=== PATIENT | male | born 1940 | race Caucasian/White ===

== ENCOUNTER 2016-10-28 15:10 | Inpatient (IN) | payer MEDICARE, OTHER ==
[~2016-10-28] VITALS: Ht 175.3 cm; Wt 111.4 kg
--- NOTE | ~2016-10-28 | DS ---
PATIENT'S NAME: JEANNINE CISNEROS [facility] AGE: 75 Y [address] ROOM: [place] [address] LOCATION: GPCU ADMIT DATE: 10/28/2016 Discharge Summary DISCHARGE DATE: 10/31/2016 FAMILY PHYSICIAN: Dionne Torres MD ATTENDING PHYSICIAN: Oh Franklin V PRIMARY DIAGNOSES: 1. Acute on chronic hypoxic hypercapnic respiratory failure. 2. Chronic obstructive pulmonary disease with exacerbation. 3. Community-acquired pneumonia, unknown organism. 4. Acute on chronic diastolic congestive heart failure. 5. Chronic atrial fibrillation, not on long-term anticoagulation due to history of GI bleeds. 6. Chronic kidney disease, stage III. 7. Morbid obesity. OPERATIONS/PROCEDURES: Echocardiogram was obtained 10/29/2016, demonstrating an ejection fraction 55-60%, mild aortic regurgitation. No other acute findings. HISTORY OF PRESENT ILLNESS/REASON FOR ADMISSION: Please with the H and P dictated 10/28/2016. HOSPITAL COURSE: The patient was admitted to hospital as noted above with a presumptive diagnosis of acute on chronic hypoxic hypercapnic respiratory failure. Pneumonia was diagnosed on the basis of radiographic findings. Cultures remained negative. He was treated with broad-spectrum antibiotic therapy including Rocephin and Zithromax. His clinical condition gradually improved. Oxygen requirements were relatively stable. He did not have any significant increase in oxygen demand. He did receive aggressive attention to pulmonary hygiene and some physical therapy and occupational therapy. By the end of the 4th day of his hospital stay, it was felt that he would be stable enough for discharge to home with plans for close clinical followup with as well as continued home oxygen therapy. His expressed some concerns that their equipment was not functioning properly and also expressed some dissatisfaction with their current oxygen supplier. She did indicate that they were apparently contractually agreed with that company, however. DISCHARGE INSTRUCTIONS: DIET: Cardiac prudent as tolerated. PATIENT'S NAME: JEANNINE CISNEROS [facility] AGE: 75 Y [address] ROOM: [place] [address] LOCATION: GPCU ADMIT DATE: 10/28/2016 Discharge Summary DISCHARGE DATE: 10/31/2016 FAMILY PHYSICIAN: Dionne Torres MD ATTENDING PHYSICIAN: Oh Franklin V ACTIVITY: As tolerated. MEDICATIONS: 1. Oxygen 2 L per nasal cannula continuously. 2. Zithromax 500 mg p.o. daily x5 more days. 3. Minocycline 100 mg p.o. at bedtime. 4. Amitriptyline 25 mg p.o. at bedtime. 5. Klonopin 2 mg p.o. at bedtime. 6. Delsym syrup 30 mg p.o. at bedtime p.r.n. 7. Probiotic powder one dose p.o. b.i.d. 8. Lasix 60 mg p.o. daily. 9. Guaifenesin 600 mg p.o. b.i.d. 10. Losartan 50 mg p.o. daily. 11. Prednisone 30 mg p.o. daily x5 more days, then 20 mg p.o. daily. 12. Mirtazapine 30 mg p.o. at bedtime. 13. Singulair 10 mg p.o. at bedtime. 14. Protonix 40 mg p.o. b.i.d. 15. Simvastatin 20 mg p.o. at bedtime. 16. Flomax 0.4 mg p.o. q.a.m. 17. DuoNeb q.i.d. and every 4 hours as needed for wheezing and shortness of breath. 18. Symbicort 160/4.5 two puffs p.o. b.i.d. 19. Albuterol HFA 2 puffs p.o. q.4 hours p.r.n. 20. Iron 325 mg p.o. b.i.d. FOLLOWUP: He will follow up with Dr. Calhoun, Pulmonology in 1-2 weeks. He will establish care with Dr. Layla Wilkerson in [place] in 5-7 days. CONDITION ON DISCHARGE: Fair. TOTAL TIME SPENT ON DISCHARGE PROCESS: 60 minutes. MD ROLLY ROCHA/marylin /[id number] d: 11/01/16 0215 t: 03/23/17 1532, DISCHARGE SUMMARY
--- NOTE | ~2016-10-28 | ER ---
PATIENT'S NAME: JEANNINE CISNEROS [facility] AGE: 75 Y [address] ROOM: [place] [address] LOCATION: GPCU ADMIT DATE: 10/28/2016 ER/Outpatient Report DISCHARGE DATE: FAMILY PHYSICIAN: Dionne Torres MD ATTENDING PHYSICIAN: BAM MICHELLE V Time of Arrival: 1510 hours. Time seen: 1520 hours. IDENTIFICATION: This is a 75-year-old male. CHIEF COMPLAINT: Weakness. HISTORY OF PRESENT ILLNESS: The patient has weakness and decreased appetite. He was seen yesterday in the [facility] ER and diagnosed with bronchitis. His doxycycline was increased from once a day to twice a day. Today, he just feels like a wet rag. He has a nonproductive cough, shortness of breath. No fever or chills. Decreased appetite. Just does not feel well. So, they drove from [place] because Dr. Calhoun is his mechanical striper. PAST MEDICAL HISTORY: ALLERGIES: PENICILLIN, AVELOX, AMBIEN, AND LEVAQUIN. THE AVELOX AND LEVAQUIN CAUSED HIM TO HAVE BAD C. DIFF ACCORDING TO THE . CURRENT MEDICATIONS: 1. Symbicort 160/4.5. 2. Pantoprazole 40 mg b.i.d. 3. Montelukast 10 mg at bedtime. 4. Amitriptyline 25 mg at bedtime. 5. Ferrous sulfate 325 mg 1/2 tab t.i.d. 6. Clonazepam 2 mg. 7. Doxycycline 100 mg b.i.d. 8. Flomax 0.4 mg daily. 9. Prednisone 20 mg daily. 10. Losartan 50 mg daily. 11. Simvastatin 20 mg at bedtime. 12. Mucinex 600 mg per ER. 13. Lasix 40 mg 1-1/2 daily. 14. Remeron 30 mg at bedtime. 15. Probiotic 1/4th teaspoon b.i.d. PATIENT'S NAME: JEANNINE CISNEROS [facility] AGE: 75 Y [address] ROOM: [place] [address] LOCATION: GPCU ADMIT DATE: 10/28/2016 ER/Outpatient Report DISCHARGE DATE: FAMILY PHYSICIAN: Dionne Torres MD ATTENDING PHYSICIAN: BAM MICHELLE V MEDICAL PROBLEMS: COPD, history of C. diff, and hypertension. PRIOR SURGERIES: Cholecystectomy and cataract surgery. FAMILY HISTORY: No pertinent family history identified. SOCIAL HISTORY: The patient lives in [place], [place]. 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 He did a lot of traveling. He is . Tobacco use denies. Alcohol use denies. Drug use denies. REVIEW OF SYSTEMS: All systems reviewed negative other than what is noted in the HPI. PHYSICAL EXAMINATION: VITAL SIGNS: Pulse 83, respirations 20, temperature 98.4, and sats 95% on 2 L. HEENT: Head: Normocephalic, atraumatic. Ears: TMs translucent, both ears. Nose: Mucosa pink, no lesions. Mouth: No lesions. Pharynx benign. NECK: Supple. No lymphadenopathy. LUNGS: Clear to auscultation with crackles at the right base. HEART: Regular rate and rhythm. ABDOMEN: Soft, nondistended, nontender. SKIN: [place], warm, and dry. No lesions or rashes noted. NEUROLOGIC: Exam no focal deficit. PSYCH: The patient has a depressed mood. Good eye contact. No suicidal ideation. LABORATORY DATA: Labs were obtained to include blood cultures, urine culture. Lactated is 2.2. EKG, sinus rhythm with occasional PVCs, 81 beats per minute. No acute ST elevation or depression. Hemoglobin 12.9, hematocrit 40.5, platelets 167, white count elevated at 14.2 with 90% neutrophils and this is up from 7 yesterday. INR 1.0. ProBNP 111. Sodium 142, potassium 4.2, chloride 106, CO2 28, BUN 30, creatinine 1.2, and blood sugar 180. Hemoglobin A1c had been added after this. Magnesium 1.9. CPK 60, CK-MB 0.6, troponin I less than 0.010. Procalcitonin elevated at 0.58. Hemoglobin A1c 4.7. One-view chest x- ray, infiltrate in the right middle lobe. Pending Radiology over-read. IMPRESSION AND PLAN: 1. Right middle lobe pneumonia. PATIENT'S NAME: JEANNINE CISNEROS [facility] AGE: 75 Y [address] ROOM: [place] [address] LOCATION: GPCU ADMIT DATE: 10/28/2016 ER/Outpatient Report DISCHARGE DATE: FAMILY PHYSICIAN: Dionne Torres MD ATTENDING PHYSICIAN: BAM MICHELLE V 2. Chronic obstructive pulmonary disease exacerbation. PLAN: 125 mg of Solu-Medrol. The patient will be started on the pneumonia pathway. Dr. Michelle here for admission and will make a choice on antibiotics due to his intolerance and history of clostridium difficile colitis. For the chronic obstructive pulmonary disease, he was given 125 mg of Solu-Medrol and Dr. Calhoun will be consulted. Dr. Calhoun was notified of his admission, recommended DuoNeb every 4 hours and albuterol every 2 hours p.r.n., IV steroids and he will provide consultation. RENAE ANTOINE MD CAR/modl /[id number] d: 10/29/16 1203 t: 10/31/16 0923, OUTPATIENT REPORT
--- NOTE | ~2016-10-28 | HP ---
PATIENT'S NAME: JEANNINE CISNEROS [facility] AGE: 75 Y [address] ROOM: [place] [address] LOCATION: GPCU ADMIT DATE: 10/28/2016 History & Physical DISCHARGE DATE: FAMILY PHYSICIAN: Dionne Torres MD ATTENDING PHYSICIAN: BAM MICHELLE V DATE OF SERVICE: CHIEF COMPLAINT: Weakness. HISTORY OF PRESENT ILLNESS: The patient is a 75-year-old male with past medical history most significant for chronic hypoxic respiratory failure with oxygen dependency due to nontobacco cause COPD. The patient presented to a different hospital yesterday with complaints of increased fatigue and lack of energy as well as anorexia. He had an increase in the dose of his doxycycline, which he takes chronically from 100 mg daily to b.i.d. The patient is also on 20 mg of prednisone at all times, but that was not changed. Today, the patient came to the ER at [facility] with the same complaints. The measures taken at the outside facility did not improve him. Unfortunately, he and his are very poor historians, and he only really volunteers increased fatigue, weakness, decreased oral intake, and lack of energy. His also does endorse a drop in his oxygen to approximately 87% on chronic 2 L of nasal cannula that he has at home. Workup in the emergency room revealed a mild leukocytosis as well as a likely right middle/lower lobe pneumonia. When questioned about paroxysmal nocturnal dyspnea or orthopnea, the patient denies any worsening of those symptoms. He may or may not have history of heart failure, but we do not have those records. REVIEW OF SYSTEMS: All systems have been reviewed and negative aside from pertinent positives as mentioned above. PAST MEDICAL HISTORY: Significant for; 1. Chronic hypoxic respiratory failure due to COPD. 2. Questionable diabetes. 3. Irregular heart rate as reported by his , though I do not appreciate any records of atrial fibrillation here. 4. History of significant Clostridium difficile infection, which "almost PATIENT'S NAME: JEANNINE CISNEROS [facility] AGE: 75 Y [address] ROOM: [place] [address] LOCATION: GPCU ADMIT DATE: 10/28/2016 History & Physical DISCHARGE DATE: FAMILY PHYSICIAN: Dionne Torres MD ATTENDING PHYSICIAN: BAM MICHELLE V killed him" as per his . 5. Hypertension. CURRENT MEDICATIONS: 1. Symbicort. 2. Pantoprazole. 3. Montelukast. 4. Amitriptyline. 5. Ferrous sulfate. 6. Clonazepam. 7. Doxycycline. 8. Flomax. 9. Prednisone. 10. Colace. 11. Simvastatin. 12. Mucinex. 13. Lasix. 14. Remeron. SOCIAL HISTORY: Negative for any history of tobacco use, but is significant for exposure to chemical dust, which supposedly was the underlying cause for his COPD. FAMILY HISTORY: Reviewed and is noncontributory due to known underlying etiology for his presentation. PHYSICAL EXAMINATION: VITAL SIGNS: Blood pressure 143/93, temperature 98.4, pulse 83, saturating 95% on 2 L nasal cannula, and respirations are 20. GENERAL APPEARANCE: A chronically ill, elderly male, in no acute distress. NEUROLOGIC: Nonfocal. EYES: Show pupils are equal and reactive to light. LYMPHATIC: Shows no cervical lymphadenopathy. ENDOCRINE: Shows no thyromegaly. LUNGS: Significant for crackles in the right base and right middle lobe. HEART: Reveals irregular rate and rhythm without appreciable murmurs, gallops, or rubs. There is no lower extremity edema and JVD cannot be assessed. GI: Abdomen is soft, nontender, and nondistended. : Reveals no costovertebral angle tenderness. VASCULAR: 2+ pedal pulses. MUSCULOSKELETAL: Reveals no muscle or joint abnormalities. SKIN: Warm and dry. PSYCHIATRIC: Reveals depressed mood, but no suicidal ideations. Appropriate PATIENT'S NAME: JEANNINE CISNEROS [facility] AGE: 75 Y [address] ROOM: [address] [place] [id number] [facility] ADMIT DATE: 10/28/2016 History & Physical DISCHARGE DATE: FAMILY PHYSICIAN: Dionne Torres MD ATTENDING PHYSICIAN: BAM MICHELLE V mood, cognition, and affect. LABORATORY DATA: Studies performed in the ER are significant for an EKG, which shows normal sinus rhythm at 80 beats per minute with frequent PVCs. No ST-segment or T- wave abnormalities. Chest x-ray, which shows a right middle/lower lobe infiltrate. Lab results are significant for a lactate of 2.2, unremarkable basic metabolic profile, otherwise 2 sets of negative cardiac enzymes. White count is 14.2 with a procalcitonin of 0.58. Urinalysis is still pending. ASSESSMENT AND PLAN: This is a 75-year-old male, who will be admitted with; 1. Acute on chronic hypoxic respiratory failure, likely due to pneumonia. This was a transient finding at home. We will continue monitoring his O2 saturation. 2. Suspected pneumonia. Organism yet unknown. We will check his urine for Legionella and pneumococcal antigens. We will treat him empirically with aztreonam due to quinolone intolerance and reported allergy to penicillin. We will follow up his cultures. 3. Questionable history of congestive heart failure. I do not see an echocardiogram having ever been done, and we will either request that from his PMD or perform one here. 4. Chronic obstructive pulmonary disease. We will put the patient on a more aggressive steroid regimen that he is on right now. 5. Additional management depend on clinical course. Time dedicated to the patient's encounter is 35 minutes. MD BINU AVERY/marylin /[id number] D: T: 802 HISTORY & PHYSICAL
--- NOTE | ~2016-10-28 | ECHO ---
Transthoracic Echocardiography Report (TTE) Demographics Patient Name JEANNINE CISNEROS Date of Study 10/29/2016 Patient Number [id number] Visit Number [id number] Date of 1940 Room Number G6305 Accession Number [id number] Gender Male Age 75 year(s) Referring Melissa Baker MD Dental Detail Representative Wilman Romero [facility], Physician RVT Physician Interpreting Sridhar Lea Maintenance Shop Technician Physician MD Supervising Ordering Physician Noemi Thakkar MD/[facility]IU Nurse Stress Scrub Nurse Conclusions Contractility Score Summary Normal Left Ventricular contractility was noted. Summary The estimated left ventricular ejection fraction is 55-60% with normal wall thickness,EF and WM. The aortic valve is mildly sclerotic. There is mild aortic regurgitation by color Doppler. Trivial TR. Procedure Type of Study TTE procedure:2D Echocardiogram. Procedure Date Date: 10/29/2016 Start: 09:12 AM Study Location: Inpatient Portable Technical Quality: Adequate visualization Indications:Shortness of breath and CHF. Appropriate Use Criteria: 9 Patient Status: Routine BP: 122/58 mmHg M-Mode/2D Measurements LV Diastolic Dimension: 5.59 cm LV Systolic Dimension: 3.47 cm LV Septum Diastolic: 1.09 cm LV PW Diastolic: 1.08 cm LA Dimension: 3.7 cm RV Diastolic Dimension: 2.96 cm LA volume: 52 ml LVOT: 2 cm RV Base: 3.4 cm LVOT VTI: 25.5 cm RV Mid: 2.35 cm LV Stroke volume: 80.07 ml TAPSE: 2.51 cm TDI-S': 12.4 cm/s Doppler Measurements AV Peak Velocity: 1.24 m/s MV Peak E-Wave: 0.68 m/s AV Peak Gradient: 6.15 mmHg MV Peak A-Wave: 0.9 m/s AV Mean Gradient: 5 mmHg MV E/A Ratio: 0.76 LVOT Peak Velocity: 1.19 m/s AV P1/2t: 439 msec MV Deceleration Time: 331 msec TR Velocity:1.8 m/s PV Peak Velocity: 1.01 m/s TR Gradient:12.96 mmHg PV Peak Gradient: 4.08 mmHg Estimated RAP:8 mmHg Estimated PASP: 20.96 mmHg Estimated RVSP: 21 mmHg A' Septal Velocity: 0.11 m/s E' Septal Velocity: 0.06 m/s A' Lateral Velocity: 0.13 m/s E' Lateral Velocity: 0.07 m/s Findings Left Ventricle Normal left ventricle size and function. Right Ventricle Normal right ventricle structure and function. Left Atrium Normal left atrial size. Right Atrium The right atrium is mildly dilated. IVC not visualised. Mitral Valve Normal mitral valve structure and function. Aortic Valve The aortic valve is mildly sclerotic. There is mild aortic regurgitation by color Doppler. Tricuspid Valve Trivial tricuspid regurgitation by color Doppler. Pulmonic Valve Trivial pulmonic valve regurgitation by color Doppler. Pericardial Effusion No evidence of pericardial effusion. Miscellaneous Visualized portions of the aortic root and ascending aorta appear normal in size. Pleural Effusion No evidence of pleural effusion. Contractility Score LV regional wall motion:(0-Non visualized 1-Normal 2-Hypokinesis 3-Akinesis 4-Dyskinesis 5-Aneurysm) Signature dtt: Leonora Waller dtd: 10/29/16 0912 Physician Self Edit
[~2016-10-28 15:10] MED LIST: COZAAR50 MG PO; DELTASONE10 MG PO; DURICEF (NON-500 MG PO; ELAVIL25 MG PO; FEOSOL325 MG PO; FLOMAX0.4 MG PO; HYDRALAZINE HCL25 MG PO; HYDRODIURIL25 MG PO; IPRAT-ALBUT 0.5-3 ML INH; K-TAB ER10 MEQ PO; KLONOPIN2 MG PO; LASIX40 MG PO; LEVAQUIN500 MG PO; MIRTAZAPINE30 MG PO; MUCINEX600 MG PO; PANTOPRAZOLE SO40 MG PO; PROBIOTIC POWDER PO; PROVENTIL OR V6.7 GM INH; SINGULAIR10 MG PO; SYMBICORT 16010.2 GM INH; ZOCOR20 MG PO
[2016-10-28 15:58] LABS: BASOPHIL % 0.1 %; HEMATOCRIT 40.5 % (37.0-53.0); HEMOGLOBIN 12.9 g/dL (11.0-16.0); IMMATURE GRANULOCYTE # 0.1 K/uL (0.0-0.3); IMMATURE GRANULOCYTE % 0.4 %; LYMPHOCYTE # 0.8 K/uL (0.8-4.0); LYMPHOCYTE % 5.6 %; MCH 31.1 pg (27.0-34.0); MCHC 31.9 gm/dL (32.0-36.5); MCV 97.6 fl (83.0-98.0); MONOCYTE # 0.5 K/uL (0.0-1.0); MONOCYTE % 3.7 %; MPV 9.3 fl (9.4-12.4); NEUTROPHIL # (ANC) 12.8 K/uL (1.4-9.0); NEUTROPHIL % 90.2 %; NRBC % 0 /100WBC (0-0.00); PLATELET COUNT 167 K/uL (150-450); RBC 4.15 M/uL (3.50-5.50); WBC 14.2 K/uL (4.0-11.0)
[2016-10-28 16:10] LABS: PTT 24 SECONDS (25-32)
[2016-10-28 16:19] LABS: ALBUMIN 3.2 gm/dL (3.5-5.0); ALK PHOS 69 IU/L (33-138); ALT 23 IU/L (12-78); ANION GAP 12.2 (10.0-19.0); AST 18 IU/L (10-40); BLOOD UREA NITROGEN 30 mg/dL (6-24); CALCIUM 7.8 mg/dL (8.5-10.5); CHLORIDE 106 mMol/L (96-110); CO2 28 mMol/L (22-32); CPK 60 IU/L (35-332); CREATININE 1.2 mg/dL (0.6-1.3); ESTIMATED GFR (MDRD EQUATION) 59; MAGNESIUM 1.9 mg/dL (1.3-2.6); POTASSIUM 4.2 mMol/L (3.7-5.1); SODIUM 142 mMol/L (135-145); TOTAL BILIRUBIN 0.7 mg/dL (0.0-1.5); TOTAL PROTEIN 6.2 g/dL (6.0-8.4)
[2016-10-28] MEDS ORDERED: DOXYCYCLINE100 MG PO (19:11)
[2016-10-28] MEDS ORDERED: DELSYM30 MG/5 ML PO (19:14)
--- NOTE | 2016-10-29 02:50 | NUR ---
Patient is a 75 year old male who went to the [place] ER on 10/27 for increased shortness in breath and weakness. Dx with upper respiratory infection and given PO ATB. Patient still not feeling well on 10/28 so brought to [facility] to be seen and stating that he needed to be admitted. Admitted to PCU for pneumonia, started on IV ATB and pnuemonia pathway. VSS on admission. PIV to L)hand.
[2016-10-29 04:15] LABS: BASOPHIL % 0.1 %; HEMATOCRIT 36.3 % (37.0-53.0); IMMATURE GRANULOCYTE # 0.1 K/uL (0.0-0.3); IMMATURE GRANULOCYTE % 0.5 %; LYMPHOCYTE # 0.8 K/uL (0.8-4.0); LYMPHOCYTE % 7.4 %; MCH 31.4 pg (27.0-34.0); MCHC 33.1 gm/dL (32.0-36.5); MONOCYTE # 0.1 K/uL (0.0-1.0); MONOCYTE % 0.8 %; MPV 9.5 fl (9.4-12.4); NEUTROPHIL # (ANC) 10.1 K/uL (1.4-9.0); NEUTROPHIL % 91.2 %; NRBC % 0 /100WBC (0-0.00); PLATELET COUNT 165 K/uL (150-450); RBC 3.82 M/uL (3.50-5.50); RDW-CV 13.8 % (11.9-14.6)
[2016-10-29 04:25] LABS: BLOOD UREA NITROGEN 28 mg/dL (6-24); CALCIUM 7.7 mg/dL (8.5-10.5); CHLORIDE 109 mMol/L (96-110); CO2 26 mMol/L (22-32); CREATININE 1.1 mg/dL (0.6-1.3); ESTIMATED GFR (MDRD EQUATION) > 60; SODIUM 145 mMol/L (135-145)
--- NOTE | 2016-10-29 04:43 | NUR ---
Significant Event:A/Ox3, forgetful at times. Afebrile. SR with PVC no edema noted. O2 @ 2L/NC per home dose with sats >90%. Lung sounds cl/dim throughout. No cough noted. Abdomen round with noted umbilical hernia. Transfers SBA to 1 assist. PIV to L)hand saline locked. Follow up:CBC improved ?change to PO ATB?
[2016-10-29] MEDS ORDERED: DUONEB INH (09:23)
[2016-10-29 14:21] LABS: BASOPHIL % 0.1 %; HEMOGLOBIN 12.2 g/dL (11.0-16.0); IMMATURE GRANULOCYTE # 0.1 K/uL (0.0-0.3); IMMATURE GRANULOCYTE % 0.5 %; LYMPHOCYTE # 0.7 K/uL (0.8-4.0); LYMPHOCYTE % 5.7 %; MCHC 32.1 gm/dL (32.0-36.5); MCV 96.7 fl (83.0-98.0); MONOCYTE # 0.3 K/uL (0.0-1.0); MONOCYTE % 2.5 %; MPV 9.5 fl (9.4-12.4); NEUTROPHIL # (ANC) 11.6 K/uL (1.4-9.0); NEUTROPHIL % 91.2 %; NRBC % 0 /100WBC (0-0.00); PLATELET COUNT 177 K/uL (150-450); RBC 3.93 M/uL (3.50-5.50); WBC 12.7 K/uL (4.0-11.0)
--- NOTE | 2016-10-29 17:05 | NUR ---
PATIENT UP IN ROOM HAS SHOWERED TODAY. PATIENT WAS 92% ON ROOM AIR BUT WOULD NOT ALLOW US TO LEAVE HIM ON ROOM AIR. SHE STATED HE IS ON 2 LITERS ALL THE TIME AT HOME AND THATS WHAT HE IS GOING TO BE ON HERE. PATIENT HAS BEEN COOPERATIVE THROUGHOUT DAY.
[2016-10-30 03:49] LABS: ANION GAP 11.2 (10.0-19.0); BLOOD UREA NITROGEN 35 mg/dL (6-24); CALCIUM 8.1 mg/dL (8.5-10.5); CHLORIDE 111 mMol/L (96-110); CO2 28 mMol/L (22-32); CREATININE 1.1 mg/dL (0.6-1.3); ESTIMATED GFR (MDRD EQUATION) > 60; POTASSIUM 4.2 mMol/L (3.7-5.1)
[2016-10-30 03:50] LABS: SODIUM 146 mMol/L (135-145)
--- NOTE | 2016-10-30 04:15 | NUR ---
Significant Event:A/Ox3. VSS on 2L/NC (per home dose). 500ml Fluid bolus ordered and maintain IVF at 70ml/h. No complications with L)hand IV. Transfers SBA. Follow up:Continue with ATB.
--- NOTE | 2016-10-30 14:24 | NUR ---
Introduced self and care management services to patient. Lives in [place] with . Denies concerns about going home on discharge, starting pt/ot today but feels he will be strong enough to go home when ready for dc. Will follow.
--- NOTE | 2016-10-30 19:39 | NUR ---
PATIENT UP TO CHAIR W/ 1 ASSIST. PT/OT WORKED WITH PATIENT. AT BEDSIDE. DR WATTERS CONSULTED PER 'S REQUEST, DR SOMERS STATED HE WOULD NOTIFY DR WATTERS. CONTINUED ON 2L NC WEARS AT HOME. CONTINUE IV FLUIDS AND ANTIBIOTICS.
[2016-10-31 03:48] LABS: HEMATOCRIT 33.8 % (37.0-53.0); HEMOGLOBIN 10.7 g/dL (11.0-16.0); IMMATURE GRANULOCYTE # 0.1 K/uL (0.0-0.3); IMMATURE GRANULOCYTE % 0.9 %; LYMPHOCYTE # 0.5 K/uL (0.8-4.0); LYMPHOCYTE % 7.4 %; MCH 31.2 pg (27.0-34.0); MCHC 31.7 gm/dL (32.0-36.5); MCV 98.5 fl (83.0-98.0); MONOCYTE # 0.3 K/uL (0.0-1.0); MONOCYTE % 3.6 %; MPV 9.6 fl (9.4-12.4); NEUTROPHIL # (ANC) 6.2 K/uL (1.4-9.0); NEUTROPHIL % 88.1 %; NRBC % 0 /100WBC (0-0.00); PLATELET COUNT 168 K/uL (150-450); RBC 3.43 M/uL (3.50-5.50)
[2016-10-31 04:02] LABS: ALBUMIN 2.5 gm/dL (3.5-5.0); BLOOD UREA NITROGEN 30 mg/dL (6-24); CALCIUM 7.7 mg/dL (8.5-10.5); CHLORIDE 114 mMol/L (96-110); CO2 25 mMol/L (22-32); CREATININE 0.9 mg/dL (0.6-1.3); ESTIMATED GFR (MDRD EQUATION) > 60; PHOSPHORUS 3.1 mg/dL (2.5-4.9); POTASSIUM 4.4 mMol/L (3.7-5.1)
[2016-10-31 04:03] LABS: ANION GAP 12.4 (10.0-19.0); SODIUM 147 mMol/L (135-145)
--- NOTE | 2016-10-31 05:00 | NUR ---
Significant Event:A/Ox3. VSS. 2L/NC per home dose. Expiratory wheezes on and off throughout the shift. Transfers SBA. Pro-BNP 1033 today. ? Discontinue IVF ? Change IV ATB to PO ?. Large BM this shift. Follow up:Possible discharge to home.
[2016-10-31] MEDS ORDERED: MINOCIN100 M2 PO (11:34)
[2016-10-31] MEDS ORDERED: ZITHROMAX500 MG PO (11:36)
--- NOTE | 2016-10-31 13:16 | NUR ---
Patient known to me from prior teaching. Reintroduced self and purpose of heart healthy education and care transitions. Calendar given, information reviewed, verbalized understanding. at bedside.
--- NOTE | 2016-10-31 16:27 | NUR ---
1520: REVIEW OF HOME MEDS AND NEW MEDS WITH HANDOUTS AND SIDE EFFECTS DISCUSSED. PRESCRIPTION GIVEN. DIET/ ACTIVITY FOLLOW UP APPT. INFORMATION ON COPD. PATIENT'S WITH A LOT OF QUESTIONS. QUESTIONS ANSWERED. HAD TO REPEAT SOME OF THE INFORMATION. PATIENT VOICED UNDERSTANDING.
== END 2016-10-31 16:30 | disposition disaster alternative care site (69) | DRG 193 ==
LOC: GMED 15:10 → GPCU 17:31
PROVIDERS: Family Medicine; ADMIT Internal Medicine
DX: J18.9 Pneumonia, unspecified organism (principal); J96.21 Acute and chronic respiratory failure with hypoxia; I50.33 Acute on chronic diastolic (congestive) heart failure; J96.22 Acute and chronic respiratory failure with hypercapnia; J44.1 Chronic obstructive pulmonary disease with (acute) exacerbation; E66.01 Morbid (severe) obesity due to excess calories; I12.9 Hypertensive chronic kidney disease with stage 1 through stage 4 chronic kidney disease, or unspecified chronic kidney disease; N18.3 Chronic kidney disease, stage 3 (moderate); Z68.35 Body mass index [BMI] 35.0-35.9, adult
CPT/HCPCS: J0456; J0696; J1650; J1940; J2920; J2930; J7030; J7040; J7050